=== PATIENT | female | born 1975 | race Caucasian/White ===

== ENCOUNTER 2016-10-20 15:20 | Inpatient (IN) | payer BC ==
[~2016-10-20] VITALS: Ht 167.6 cm; Wt 163.1 kg
--- NOTE | ~2016-10-20 | HP ---
PATIENT'S NAME: TERRIE OJEDA [facility] AGE: 41 Y [address] ROOM: [address] [address] [place] [facility] [place] DATE: 10/20/2016 History & Physical DISCHARGE DATE: FAMILY PHYSICIAN: PHYSICIAN, UNKNOWN ATTENDING PHYSICIAN: KARELY ZUÑIGA DATE OF SERVICE: CHIEF COMPLAINT: Oliguria, HELEN. HISTORY OF PRESENT ILLNESS: This is a 41-year-old female with morbid obesity and chronic pain. Transferred from [place], [place], after being found to have HELEN and oliguria after she was initially admitted 3 days ago for complaints of abdominal pain, nausea, vomiting, and diarrhea. The patient was admitted for management of colitis, which was discovered on initial CT scan with IV contrast. The patient from that standpoint had been doing well until this morning where over the past 24 to 48 hours, her urine output was slowly declining and her creatinine jumped up to 2.5. The patient denies having any known history of kidney issues, but does report having couple kidney stones that resolved without any invasive intervention. The patient does take multiple pain medications at home for chronic pain issues including ibuprofen and Toradol especially during her hospitalization this weekend. The patient also tells me that over the weekend, her blood pressure was 70s at some point briefly. On admission, the patient's creatinine was 0.8 and has gotten up to 2.5 today. The patient has made about 250 mL since this morning. The patient states that her abdominal pain is better. She is tolerating p.o. intake well; had not had any nausea, vomiting, or diarrhea over the past 48 hours. Denies any chest pain. Complains of some shortness of breath. No dizziness, lightheadedness, or palpitations. No fever or chills. PAST MEDICAL HISTORY: 1. Morbid obesity. 2. Nocturnal hypoxia and has had sleep study in the past, where she was told to wear oxygen at home, but she is not compliant with this. 3. Chronic pain syndrome. 4. Hypertension. SOCIAL HISTORY: The patient denies any history of smoking, alcohol, or drug use. FAMILY HISTORY: The patient has a history of diabetes in her father. PATIENT'S NAME: TERRIE OJEDA [facility] AGE: 41 Y [address] ROOM: [id number] [place], [place] [address] [place] [facility] [place]: 10/20/2016 History & Physical DISCHARGE DATE: FAMILY PHYSICIAN: PHYSICIAN, UNKNOWN ATTENDING PHYSICIAN: KARELY ZUÑIGA REVIEW OF SYSTEMS: A 10-point review of systems was conducted and were all negative except as mentioned in the HPI. PHYSICAL EXAMINATION: VITAL SIGNS: Blood pressure 105/76, pulse 85, respiratory rate 20, and saturating 95% on 2 L of oxygen. GENERAL: The patient is awake, alert, oriented, in no acute apparent distress. Morbidly obese. HEENT: Moist mucous membranes. No scleral icterus or conjunctival pallor noted. SKIN: Without rash or lesions. HEART: S1 and S2. Regular rate and rhythm. CHEST: Diminished breath sounds, but clear to auscultation bilaterally. ABDOMEN: Distended consistent with morbid obesity, but soft and nontender. Positive bowel sounds. MUSCULOSKELETAL: No joint redness, swelling, or erythema of joint in the upper and lower extremities noted. EXTREMITIES: +1 edema bilaterally. NEURO: Grossly nonfocal. ASSESSMENT AND PLAN: 1. Acute kidney injury with oliguria in the past 24 to 48 hours. The patient without a history of known kidney disease, but did have contrast exposure to work up abdominal pain on 10/17/2016 during her initial evaluation at [place], [place]. The patient also tells me that she did have episodes of low blood pressure with systolic blood pressures in the 70s a few times in the last 24 to 48 hours. Creatinine per report from [place] is 2.5 today with significantly diminished urine output in the last day or so. The patient's creatinine was 0.8 during admission. The patient was also noted to have gained about 20 pounds in the past 3 days since her admission. Kidney injury is probably a combination of contrast induced nephropathy as well as hypotension. The patient right now is resting comfortably in chair. We will avoid the use of any nephrotoxic agent and invite Nephrology for consultation. In the meantime, we will keep a close eye on urine output, I's and O's. The patient has a Molina catheter in place. 2. Colitis. She had been started on Cipro and Flagyl and she is tolerating p.o. antibiotics since yesterday and we will continue this to finish her 7-days course of antibiotics. 3. Shortness of breath, this is related to volume overload from oliguria and kidney failure. We will continue supportive care and try to avoid hemodialysis as much as possible. The patient appears comfortable, although a bit short of breath. 4. Nocturnal hypoxia. We will use supplemental O2 at night. PATIENT'S NAME: TERRIE OJEDA [facility] AGE: 41 Y [address] ROOM: [place] [address] [place]: [facility] [place]: 10/20/2016 History & Physical DISCHARGE DATE: FAMILY PHYSICIAN: PHYSICIAN, UNKNOWN ATTENDING PHYSICIAN: KARELY ZUÑIGA 5. Morbid obesity due to excess calories. Advised on the need to modify lifestyle. 6. Chronic pain. We will dose adjust and minimize excessive use of sedating medications especially in the setting of acute kidney failure. 7. Deep venous thrombosis prophylaxis. We will use subcu heparin. MD LUIS E COCHRAN/modl /[id number] D: T: HISTORY & PHYSICAL
--- NOTE | ~2016-10-20 | CON ---
PATIENT'S NAME: TERRIE OJEDA [facility] AGE: 41 Y [address] ROOM: [address] [address] [place]: [facility] [place] DATE: 10/20/2016 Consultation DISCHARGE DATE: FAMILY PHYSICIAN: Radha Graham PA-C ATTENDING PHYSICIAN: KARELY ZUÑIGA DATE OF CONSULTATION: 10/21/2016 REFERRING PHYSICIAN: RIAN ANDREW CHIEF COMPLAINT: Oliguric HELEN. HISTORY OF PRESENT ILLNESS: A 41-year-old female with history of morbid obesity and chronic pain, transferred from [place], [place], with oliguric HELEN. Nephrology consultation has been called for same reason. She was initially admitted to an outside hospital at [place] with right lower quadrant abdominal pain, nausea, vomiting, and diarrhea. The patient had a CT scan with IV contrast, which shows ascending colitis. She was doing well until yesterday morning when her urine output slowly started to decline, and creatinine jumped from 0.8 to 2.5. Renal function was repeated again in the outside hospital, and repeat creatinine was 2.7. There was some mention of hypotension over the weekend with systolic often in the range of 70s, and on review of the medical record for this, the patient was on ibuprofen and Toradol during the hospitalization over the weekend. During my evaluation, the patient's abdominal pain is much better. She has not had any diarrhea in the last 24 hours. Tolerating p.o. intake well. No vomiting or nausea. No complaint of chest pain or shortness of breath. No dizziness nor lightheadedness. No palpitation, fevers, or chills. REVIEW OF SYSTEMS: GENERAL: No fever. No chills or rigor. HEENT: No sore throat. No sinus congestion. CVS: No chest pain. No exertional shortness of breath. No leg swelling. RESPIRATORY: No shortness of breath. No cough. No wheezing. GENITOURINARY: No pain with urination. No increased frequency. No nocturia. GASTROINTESTINAL: No abdominal pain. No abdominal distention. No nausea or vomiting. NEUROLOGIC: No weakness. No seizures. SKIN: No rash. No itching. ALLERGIES: No seasonal allergy. No hayfever. ENDOCRINE: No heat intolerance. No cold intolerance. PSYCHIATRIC: No sadness. No crying spells. No history of panic attack. PATIENT'S NAME: TERRIE OJEDA [facility] AGE: 41 Y [address] ROOM: [address] [place] [id number] LOCATION: [facility] [place] DATE: 10/20/2016 Consultation DISCHARGE DATE: FAMILY PHYSICIAN: Radha Graham PA-C ATTENDING PHYSICIAN: KARELY ZUÑIGA PAST MEDICAL HISTORY: 1. Morbid obesity. 2. Nocturnal hypoxia, had a sleep study in the past and was told to have oxygen at home especially at night, noncompliant with that advice. 3. Chronic pain syndrome. 4. Hypertension. SOCIAL HISTORY: Denied any history of smoking, alcohol, or IV drug abuse. FAMILY HISTORY: History of diabetes in her father. PHYSICAL EXAMINATION: VITAL SIGNS: Blood pressure on admission was in 90 to 100, however, now it is in 120 over 70s to 80s, pulse 93, respiratory rate 20, saturation 95% to 98% on room air. GENERAL: A middle-aged morbidly obese lady, not in apparent distress. HEAD: Dry mucous membranes. Bilateral PERRLA, EOMI. NECK: JVD difficult to discern specially with morbid obesity. No thyromegaly or lymphadenopathy. CVS: S1 and S2 normal, regular rate and rhythm. No murmur, rub, gallop. CHEST: Bilateral air entry equal. No wheeze or rales. ABDOMEN: Soft, nontender, nondistended. Bowel sounds present. EXTREMITIES: No cyanosis, clubbing, jaundice. No dependent edema. MUSCULOSKELETAL: No limitation of range of motion. SKIN: No pallor, cyanosis, icterus. PAN SHAKER: Alert and oriented x3. No gross findings. LABORATORY STUDIES: Hemoglobin 11.3, WBC 11.7, platelet 204. Sodium 141; potassium 4.2; bicarbonate 19; BUN was 24 and creatinine of 2.5 on admission, in the morning, BUN was 20 and creatinine 1.6; glucose 134; calcium 8.1; albumin 2.3; phosphorus 3.2. UA: Urine lytes are pending. ASSESSMENT AND PLAN: 1. Oliguric acute kidney injury, LOYDA stage 2, moderately severe, presumable etiology contrast-induced nephropathy with a history of recent contrast exposure in the outside hospital. However, there are other multiple possible explanations including NSAID use and hypotension. However, since transfer to [facility], with conservative management and gentle volume expansion, the patient's creatinine has improved significantly from 2.5 to 1.6. We will continue gentle IV volume expansion, avoid hemodynamic instability including hypotension, MAP should be kept more than 65, avoid nephrotoxins, and other contrast exposure. We will send UA, urine lytes including sodium, potassium, creatinine, and osmolality. Place and maintain a Molina catheter for strict intake and output monitoring, daily standing weight. Although the patient is 20 pounds up from admission weight in the outside hospital, but she might be dry during the admission.PATIENT'S NAME: TERRIE OJEDA [facility] AGE: 41 Y [address] ROOM: [place] [address] LOCATION: [facility] [place] DATE: 10/20/2016 Consultation DISCHARGE DATE: FAMILY PHYSICIAN: Radha Graham PA-C ATTENDING PHYSICIAN: KARELY ZUÑIGA 2. Ascending colitis. Currently on Cipro and Flagyl, tolerating well. Symptom is much better. Defer to primary team for further management. 3. Shortness of breath. Apparently had some shortness of breath at the outside hospital, currently doing much better. Continue supportive care. The patient's urine output is significantly high this morning. We will continue to monitor her respiratory status. However, the patient was noted to have nocturnal hypoxia and was advised to have supplemental oxygen at night but noncompliant with that advice. Thank you for allowing me to participate in this patient's care. We will closely monitor the patient's progress along with you. RIAN ANDREW MD /modl /[id number] d: 10/21/161953 t: 10/25/161634, CONSULTATION REPORT
[2016-10-20] MEDS ORDERED: PERCOCET 10-321 EACH PO (16:14)
[2016-10-20] MEDS ORDERED: DILAUDID8 MG PO (16:14)
[2016-10-20] MEDS ORDERED: ZANAFLEX4 MG PO (16:15)
[2016-10-20] MEDS ORDERED: TOPROL XL200 MG PO (16:15)
[2016-10-20] MEDS ORDERED: [UNRECOGNIZED DRUG - OTHER] IM (16:18)
[2016-10-20] MEDS ORDERED: NORA-BE0.35 MG PO (16:18)
[2016-10-20] MEDS ORDERED: BELSOMRA15 MG PO (16:19)
[2016-10-20] MEDS ORDERED: ABILIFY2 MG PO (16:19)
[2016-10-20] MEDS ORDERED: LYRICA 150MG C150 MG PO (16:19)
[2016-10-20] MEDS ORDERED: FETZIMA120 MG PO (16:19)
[2016-10-20] MEDS ORDERED: TORADOL IN60 MG/2 ML IM (16:20)
[2016-10-20] MEDS ORDERED: LIPITOR40 MG PO (16:20)
[2016-10-20] MEDS ORDERED: PHENERGAN25 M1 PO (16:20)
[2016-10-20] MEDS ORDERED: IMITREX6 MG/0.5 M IM (16:21)
[2016-10-20] MEDS ORDERED: MELATONIN5 M2 PO (16:21)
--- NOTE | 2016-10-20 17:26 | NUR ---
Significant event: Patient is alert and oriented x3. VSS. On 1 liter of O2 per NC. Does get short of breath with exertion and talking. Is able to ambulate with stand by assist. Has IV to left forearm, placed in [place]. Does have Molina cath in place and this was placed this morning in [place]. Does have pitting edema in hands and feet. Non-pitting edema to legs and arms. Cooperative with cares.
[2016-10-20 20:28] LABS: BASOPHIL % 0.3 %; EOSINOPHIL # 0.4 K/uL (0.0-0.5); EOSINOPHIL % 3.5 %; HEMATOCRIT 35.7 % (33.0-46.0); HEMOGLOBIN 11.3 g/dL (10.0-15.0); IMMATURE GRANULOCYTE # 0.1 K/uL (0.0-0.3); IMMATURE GRANULOCYTE % 0.5 %; LYMPHOCYTE # 2.2 K/uL (0.8-4.0); LYMPHOCYTE % 19.1 %; MCH 30.6 pg (27.0-34.0); MCHC 31.7 gm/dL (32.0-36.5); MCV 96.7 fl (83.0-98.0); MONOCYTE # 0.7 K/uL (0.0-1.0); MONOCYTE % 5.6 %; MPV 10.6 fl (9.4-12.4); NEUTROPHIL # (ANC) 8.3 K/uL (1.8-7.8); NRBC % 0 /100WBC (0-0.00); PLATELET COUNT 204 K/uL (150-450); RBC 3.69 M/uL (3.50-5.50); RDW-CV 13.3 % (11.9-14.6); WBC 11.7 K/uL (4.0-11.0)
[2016-10-20 20:43] LABS: ALBUMIN 2.3 gm/dL (3.5-5.0); ANION GAP 12.9 (10.0-19.0); CALCIUM 7.8 mg/dL (8.5-10.5); CREATININE 2.5 mg/dL (0.5-1.1); MAGNESIUM 1.9 mg/dL (1.3-2.6); PHOSPHORUS 3.2 mg/dL (2.5-4.9); POTASSIUM 3.9 mMol/L (3.7-5.1)
--- NOTE | 2016-10-21 04:06 | NUR ---
ADMIT 10/20 FOR ACUTE KIDNEY INJURY W/OLIGURIA, HORTA IN PLACE WITH GOOD OUTPUT THIS SHIFT, NO N/V THIS SHIFT, VS WNL BUT PATIENT PLACED ON 1L O2 PER NC AT BEDTIME AND CPOX PLACED TO MONITOR O2 SATS PATIENT USES O2 AT HOME QHS. LEFT POSTERIOR PIV SALINE LOCK PATENT/INTACT. GOOD PO INTAKE AND TOLERATED A RENAL DIET WELL. RATES CHRONIC HEADACHE/BACK PAIN 3-6/10, ABD PAIN 3/10 WITH CRAMPING AT TIMES AND GIVEN DILAUDID PO LD@2015 WITH GOOD RESULTS AND PERCOCET PO LD@0245 WITH GOOD RESULTS. RIGHT HAND 2+ PITTING EDEMA, BILATERAL ANKLES 1-2+ NON PITTING EDEMA. PATIENT VERY TEARY EYED THIS SHIFT HER FAMILY IS SCHEDULED TO LEAVE TODAY FOR [place] FOR HER SON'S [employer] GRADUATION AND SHE WILL BE UNABLE TO ATTEND. PATIENT HAS 3 HOME MEDS THAT ARE IN THE MED ROOM (2) ARE IN HER MEDICATION BIN AND THE BELSOMRA IS IN THE OMNICELL AND CAN BE ACCESSED UNDER STOCKED MEDICATIONS. PLAN TO DC HOME ON DISCHARGE.
[2016-10-21 06:11] LABS: ALBUMIN 2.3 gm/dL (3.5-5.0); ANION GAP 16.2 (10.0-19.0); CALCIUM 8.1 mg/dL (8.5-10.5); CREATININE 1.6 mg/dL (0.5-1.1); PHOSPHORUS 3.2 mg/dL (2.5-4.9); POTASSIUM 4.2 mMol/L (3.7-5.1)
[2016-10-21 12:21] LABS: BILIRUBIN URINE NEGATIVE (NEGATIVE); BLOOD URINE 150 /UL (NEGATIVE); COLOR URINE YELLOW (YELLOW); GLUCOSE URINE NEGATIVE (NEGATIVE); KETONE URINE NEGATIVE (NEGATIVE); LEUKOCYTES URINE 25 /UL (NEGATIVE); NITRITE URINE NEGATIVE (NEGATIVE); PROTEIN URINE NEGATIVE (NEGATIVE); TURBIDITY URINE CLEAR (CLEAR); UROBILINOGEN URINE NORMAL (NORMAL)
[2016-10-21 12:36] LABS: EPITHELIAL URINE RARE #/HPF (NEGATIVE); WBC URINE 0-2 #/HPF (NEGATIVE)
[2016-10-21 12:39] LABS: BACTERIA URINE RARE (NEGATIVE); MUCUS URINE NEGATIVE (NEGATIVE)
--- NOTE | 2016-10-21 13:05 | NUR ---
STUDENT CHART CHECKED BY CASH CHECKER DEANNE ALFONSO RN BSN
--- NOTE | 2016-10-21 15:54 | NUR ---
Significant Event: Patient is alert and oriented x3. VSS and on RA. Molina in place- good urine output. Strict I/O. Daily standing weight- gathered around 1000. BMI corrected in the computer. L)FA IV- NS x1 liter ordered at 100ml/hr. Bag infusing right now. Up with SBA. Encouraging IS use. Oral dilaudid and percocet for headache/migraine- last dilaudid was at 0809 and last percocet was at 1247. Relief noted. Oral ABX. Checked urine for more abnormalities. Up with SBA. Cooperative with cares. Possibly home tomorrow.
--- NOTE | 2016-10-21 17:59 | NUR ---
SPOKE TO PATIENT REGARDINDG CM AND OUR ROLE. PATIENT LIVES IN OWN HOME. SHE DOES NOT ANTICIPATE ANY DISCHARGE NEEDS AT THIS TIME. CM WILL CONT TO FOLLOW NEEDED.
--- NOTE | 2016-10-22 04:30 | NUR ---
Significant Event: Pt alert and oriented. VSS on RA, Pt wears 2L of 02 at night. Molina draining clear yellow urine. Strict I/O. Daily standing weight. IV to the L)fa SL. PO dilauded given at 1911. Phenergan last given at 1952. Renal diet. Ambulates per standby assist. Pt had one emesis last night. Follow Up: Continue to monitor. Possible discharge.
[2016-10-22 05:41] LABS: BASOPHIL # 0.1 K/uL (0.0-0.2); BASOPHIL % 0.6 %; EOSINOPHIL # 0.2 K/uL (0.0-0.5); EOSINOPHIL % 2.6 %; HEMATOCRIT 38.3 % (33.0-46.0); HEMOGLOBIN 12.7 g/dL (10.0-15.0); IMMATURE GRANULOCYTE # 0.1 K/uL (0.0-0.3); IMMATURE GRANULOCYTE % 0.7 %; LYMPHOCYTE # 1.9 K/uL (0.8-4.0); LYMPHOCYTE % 23.5 %; MCH 30.7 pg (27.0-34.0); MCHC 33.2 gm/dL (32.0-36.5); MCV 92.5 fl (83.0-98.0); MONOCYTE # 0.5 K/uL (0.0-1.0); MPV 10.7 fl (9.4-12.4); NEUTROPHIL # (ANC) 5.4 K/uL (1.8-7.8); NEUTROPHIL % 66.6 %; NRBC % 0 /100WBC (0-0.00); PLATELET COUNT 233 K/uL (150-450); RBC 4.14 M/uL (3.50-5.50); WBC 8.1 K/uL (4.0-11.0)
[2016-10-22 05:45] LABS: ANION GAP 12.2 (10.0-19.0); BLOOD UREA NITROGEN 10 mg/dL (6-24); CALCIUM 8.3 mg/dL (8.5-10.5); CHLORIDE 110 mMol/L (96-110); CO2 23 mMol/L (22-32); CREATININE 0.8 mg/dL (0.5-1.1); MAGNESIUM 1.7 mg/dL (1.3-2.6); POTASSIUM 4.2 mMol/L (3.7-5.1); SODIUM 141 mMol/L (135-145)
[2016-10-22 05:47] LABS: ESTIMATED GFR (MDRD EQUATION) > 60
--- NOTE | 2016-10-22 11:23 | NUR ---
STUDENT CHARTING CHECKED BY CATALYST IMPREGNATOR DENANE ALFONSO RN BSN
[2016-10-22] MEDS ORDERED: CIPRO500 MG PO (12:01)
[2016-10-22] MEDS ORDERED: FLAGYL500 MG PO (12:02)
--- NOTE | 2016-10-22 12:27 | NUR ---
D: Orders received for the patient to be discharged to home today. I: Dismissal instructions were prepared and reviewed with the patient virtually. The following information was discussed with the patient including Krajenny teaching sheets: Discharge instructions for acute kidney injury, Colitis, Ciprofloxacin, Flaygl, and Preventing DVT. Reviewed follow up appointment with her primary care physician Bryanna LOU at [facility] in [place], [place]. Patient stated she will be out of town until Thursday so unable to get her in to see her in 3-4 days was able to get her appointment on Thursday afternoon. Also discussed new prescriptions and the need for her to take them to the pharmacy to fill. R: The patient verbalized understanding of the dismissal education at the time of teaching with no further questions. P: The above information was shared with the primary nurse and charge nurse that the dismissal education was compeleted. The patient is ready for discharge to the front door via wheel chair by nursing staff.
--- NOTE | 2016-10-22 19:59 | NUR ---
Discharge summary: Patient copies of education, scripts, and dismissal instructions were given to patient. Verbalized understanding of all. All 3 home medications were given back to patient. IV to left forearm was dc'd with no complications. Pt has no complaints of pain or nausea today. Molina was removed this morning and patient has voided adequately. Patient was dressed and wheeled to north doors to her ride home. Does have a f/u appt with primary next week.
== END 2016-10-22 13:25 | disposition disaster alternative care site (69) | DRG 684 ==
LOC: GMSU 15:20
PROVIDERS: Hospitalist; Internal Medicine Nephrology; ADMIT Internal Medicine
DX: N17.9 Acute kidney failure, unspecified (principal); G47.34 Idiopathic sleep related nonobstructive alveolar hypoventilation; I95.9 Hypotension, unspecified; E87.70 Fluid overload, unspecified; E66.01 Morbid (severe) obesity due to excess calories; I10 Essential (primary) hypertension; N17.0 Acute kidney failure with tubular necrosis; K52.9 Noninfective gastroenteritis and colitis, unspecified; R34 Anuria and oliguria; G89.4 Chronic pain syndrome; G47.00 Insomnia, unspecified; T39.395A Adverse effect of other nonsteroidal anti-inflammatory drugs [NSAID], initial encounter; Z68.26 Body mass index [BMI] 26.0-26.9, adult
CPT/HCPCS: J1644; J2550; J7030